=== PATIENT | male | born 1965 | race African-American/Black ===

== ENCOUNTER 2017-08-20 08:06 | Observation (INO) ==
[2017-08-20] MEDS ORDERED: Aspirin 81 MG TAB.CHEW PO ONE (08:16)
[2017-08-20] MEDS ORDERED: Nitroglycerin 1 INCH/GM PACKET TP ONE (08:16)
[2017-08-20] MEDS ORDERED: *HR* FentaNYL (PF) 100 MCG/2 ML VIAL IVP ONE (08:17)
[2017-08-20 08:26] LABS: Basophils # 0.1 K/mcL (0.0-0.2); Basophils % 0.4 %; Eosinophils # 0.1 K/mcL (0.0-0.6); Hemoglobin 13.8 g/dL (12.9-16.9); Immature Granulocytes % 0.9 % (0-4); Lymphocytes # 2.4 K/mcL (0.6-4.6); Lymphocytes % 18.1 %; Mean Corpuscular HGB Conc 33.7 g/dL (31.6-35.5); Mean Corpuscular Hemoglobin 31.2 pg (28.0-33.3); Mean Corpuscular Volume 92.6 fL (83.0-100.0); Mean Platelet Volume 9.7 fL (9.4-12.4); Monocytes # 0.7 K/mcL (0.0-1.3); Monocytes % 5.5 %; Neutrophils # 9.8 K/mcL (1.6-8.9); Platelet Count 298 K/mcL (140-400); Red Blood Count 4.43 M/mcL (4.19-5.50); Red Cell Distribution Width 13.8 % (11.5-14.5); Segmented Neutrophils % 74.1 %
[2017-08-20 08:31] LABS: INR 0.9; Prothrombin Time 9.1 Seconds (9.4-12.1)
[2017-08-20 08:34] LABS: Activated Partial Thrombo Time 25.6 Seconds (26.0-36.0)
[2017-08-20 08:57] LABS: Troponin I < 0.03 ng/mL (< 0.04)
[2017-08-20 09:17] LABS: BUN/Creatinine Ratio 18 (6-26); Blood Urea Nitrogen 17 mg/dL (6-20); Carbon Dioxide 27 mEq/L (23-29); Chloride 95 mEq/L (98-107); Glucose 139 mg/dL (70-105); Osmolality,Calculated 278 (280-300); Potassium 3.9 mEq/L (3.5-5.1); Sodium 132 mEq/L (136-145); eGFR For African Americans > 60 (> 60); eGFR For Non-African Americans > 60 (> 60)
[2017-08-20] MEDS: Nitroglycerin 25 MG/250 ML INFUS..BTL IVC SCH (11:08)
--- NOTE | 2017-08-20 11:48 | Internal Med History&Physical ---
Date of Encounter: 08/20/17 Time of Encounter: 11:42 Assessment and Plan (1) Chest pain Current visit: No Status: Acute Patient has heart score 4 Has relief of chest pain from nitro paste concerning for angina, however there was some reproducible pain with palpation of left chest wall concerning for musculoskelatal pain. Cardiac enzyme negative x1 Cycle cardiac enzymes Echocardiogram Consult cardiology Nitro, Zofran prn. NPO at midnight. Qualifiers: Chest pain type: unspecified Qualified Code(s): R07.9 - Chest pain, unspecified (2) Hypertension Current visit: No Status: Acute Resume home medications. Add IV hydralazine prn Currently BP normal as patient has nitro paste Qualifiers: Hypertension type: essential hypertension Qualified Code(s): I10 - Essential (primary) hypertension (3) Left shoulder pain Current visit: No Status: Acute Qualifiers: Chronicity: unspecified Qualified Code(s): M25.512 - Pain in left shoulder (4) Hyponatremia Current visit: Yes Status: Acute Likely from patient's recent increased dose of Zestoretic recently. Will recheck BMP, hold diuretic if needed though patient may be hypertensive after nitro paste stops. (5) Coronary artery disease Current visit: Yes Status: Acute Continue home Lipitor 40 mg daily Add aspirin Qualifiers: Coronary Disease-Associated Artery/Lesion type: [place] artery [place] vs. transplanted heart: [place] heart Associated angina: angina presence unspecified Qualified Code(s): I25.10 - Atherosclerotic heart disease of [place] coronary artery without angina pectoris (6) Hyperlipidemia Current visit: Yes Status: Acute Continue Lipitor Qualifiers: Hyperlipidemia type: unspecified Qualified Code(s): E78.5 - Hyperlipidemia , unspecified (7) DVT prophylaxis Current visit: Yes Status: Acute Heparin Sq 5,000 units BID Internal Medicine - H&P: HPI History of present illness: Mr. Mattie Suggs is a 52 year old male with history of coronary artery disease last follow-up was about 3 years ago, hypertension, hyperlipidemia presented for one day history of chest pain. He has also experienced SOB, elevated BP at home of 188/92, blurry vision, red spots, dizzyness, vomiting, diaphoresis. Pain travels down left arm. Patient states he is compliant with his medications. He denies any cough or sputum. In the ED patient had CTA that was negative for pulmonary embolism but did showed calcified coronary arteries. He had CT head which showed no acute abnormalities. In the ED he was given aspirin and fentanyl. He was placed on nitro paste and stated he had alleviation of symptoms. Past Med Surg Social Fam HX - Past Medical History Medical history: coronary artery disease, hyperlipidemia, hypertension Psychiatric history: no psych history - Past Surgical History Surgical History: other - Social History Smoking Status: Current every day smoker Smokeless Tobacco Status: No Alcohol use: occasionally Drug use: none Internal Medicine - H&P: Meds Gabapentin [Neurontin] 300 mg PO HS #14 capsule 08/17/17 [Rx] Atorvastatin [Lipitor] 40 mg PO HS 08/20/17 [History] Ibuprofen [Ibuprofen] 800 mg PO TID PRN 08/20/17 [History] Lisinopril/Hydrochlorothiazide [Zestoretic 20-25 mg Tablet] 1 tab PO DAILY 08/20 [History] Oxycodone HCl/Acetaminophen [Percocet 7.5-325 mg Tablet] 1 tab PO QID 08/20/17 [ History] 3 Allergy/AdvReac Type Severity Reaction Status Date / Time hydrocodone [From [place]] Allergy Rash Verified 08/20/17 10:51 naproxen [From Aleve] Allergy Rash Verified 08/20/17 10:51 All Systems PM: A 10-system review of systems was performed and is negative for pertinent findings except as documented above in the HPI. - Constitutional Constitutional: excessive sweating, no fever(s), no night sweats, no weakness - EENT Eyes: change in vision, no loss of peripheral vision, no loss of vision, no photophobia Nose, mouth and throat: no dysphagia, no nasal discharge, no neck pain, no sore throat - Cardiovascular Cardiovascular ROS IM: chest pain, diaphoresis, dyspnea, lightheadedness, no claudication, no edema, no irregular heart rhythm, no orthopnea, no paroxysmal nocturnal dyspnea - Respiratory Respiratory: dyspnea, no cough, no hemoptysis, no dyspnea on exertion, no wheezing, no snoring, no stridor, no pain on inspiration, no chest congestion - Gastrointestinal Gastrointestinal: no abdominal pain, no diarrhea, no hematemesis, no hematochezia, no melena, no nausea, no vomiting - Musculoskeletal Musculoskeletal ROS IM: no numbness, no tingling - Integumentary Integumentary IM: no rash, no unusual bruising - Neurological Neurological ROS: no confusion, no convulsions, no focal weakness, no numbness, no tingling, no tremor(s) - Hematologic/Lymphatic Hematologic/Lymphatic: no easy bruising - Constitutional Vitals: Temp Pulse Resp BP Pulse Ox 97.6 F 74 18 125/84 95 08/20/17 11:27 08/20/17 11:31 08/20/17 11:31 08/20/17 11:31 08/20/17 11:31 - Head Head exam: Present: atraumatic, normocephalic - Eye Eye exam: Present: PERRL, conjuntiva pink, sclera anicteric Pupils: Present: PERRL - Neck Neck exam general surgery: Present: supple, trachea midline. Absent: lymphadenopathy - Respiratory Respiratory exam: Present: CTAB. Absent: accessory muscle use, rales, rhonchi, wheezes - Cardiovascular Cardiovascular exam: Present: RRR, +S1, +S2. Absent: diastolic murmur, gallop, rubs, systolic murmur Additional comments: Positive TTP of left pectoral region. - GI/Abdominal GI/Abdominal exam: Present: normal bowel sounds, soft, no peritoneal signs. Absent: distended, tenderness - Extremities Exam Extremities exam: Present: warm, radial pulses palpable and symmetrical. Absent : calf tenderness, cyanotic, pedal edema - Neurological Exam Neurological exam: Present: CN II-XII intact, oriented X3, no focal deficits. Absent: pronater drift, facial droop, speech deficit - Skin Skin exam: Present: dry, intact Internal Med - H&P Results - Labs CBC & Chem 7: 08/20/17 08:19 08/20/17 08:19
[2017-08-20] MEDS ORDERED: Ondansetron 4 MG/2 ML VIAL IVP PRN (12:04)
[2017-08-20] MEDS ORDERED: Nitroglycerin 0.4 MG TAB.SUBL SL PRN (12:04)
--- NOTE | 2017-08-20 13:17 | Cardiology Consult Note ---
Date of Encounter: 08/20/17 Time of Encounter: 13:14 Assessment and Plan (1) Chest pain Current Visit: Yes Status: Acute Atypical chest pain with negative CE's and unremarkable non specific ST changes on EKG. NPO after midnight ASA daily IV heparin ACS protocol NST in am (if cannot verify recent stress test and LHC with ongoing chest pain will consider LHC) Qualifiers: Chest pain type: chest pain on breathing Qualified Code(s): R07.1 - Chest pain on breathing; R07.81 - Pleurodynia Discussion w patient/family: The assessment and plan as outlined above was discussed with the patient and/or family members who expressed understanding and agreement. All questions were answered. Thank you for involving us in the care of your patient. Please call with any questions. History of Present Illness Consult date: 08/20/17 Consult reason: chest pain Chief complaint: pain in my chest History of present illness: Mr. Mattie Suggs is a 52 year old male h/o HTN poorly controlled, smoker, presents with chest pain atypical in presentation. CP is RSCP radiating to the interscapular region not related to activity worse with coughing and deep breathing. EKG minimal non specific ST changes and negative CE's. Last 2-3 weeks he has been having this atypical chest pain currently ongoing since the am. It is slightly positional. LHC 3 years ago as per pt mild non obstructive CAD and recently 4 months ago NST also per pt unremarkable. These are not available to review. Past Med Surg Social Fam HX - Past Medical History Medical history: coronary artery disease, hyperlipidemia, hypertension Psychiatric history: no psych history - Past Surgical History Surgical History: other - Social History Smoking Status: Current every day smoker Smokeless Tobacco Status: No Alcohol use: occasionally Drug use: none - Family History Mother Adopted: [place]: madelyn rebollar Living Status: Age at : 65 Cause of : [place] Hx Family Cardiac Disorders: Yes ([place]) Hx Family Endocrine Disorder: Yes ([place]) Hx Family Musculoskeletal Disorders: Yes (arthritis) Medications and Allergies Gabapentin [Neurontin] 300 mg PO HS #14 capsule 08/17/17 [Rx] Atorvastatin [Lipitor] 40 mg PO HS 08/20/17 [History] Ibuprofen [Ibuprofen] 800 mg PO TID PRN 08/20/17 [History] Lisinopril/Hydrochlorothiazide [Zestoretic 20-25 mg Tablet] 1 tab PO DAILY 08/20 [History] Oxycodone HCl/Acetaminophen [Percocet 7.5-325 mg Tablet] 1 tab PO QID 08/20/17 [ History] 3 Allergy/AdvReac Type Severity Reaction Status Date / Time hydrocodone [From [place]] Allergy Rash Verified 08/20/17 10:51 naproxen [From Aleve] Allergy Rash Verified 08/20/17 10:51 All Systems Review: The remainder of the systems were reviewed and are negative Physical Examination Vital Signs, Last 4 Hours Temp Pulse Resp BP Pulse Ox 08/20/17 11:31 74 18 125/84 95 08/20/17 11:27 97.6 F 79 21 147/95 96 08/20/17 11:14 102 20 93/56 96 General: Conversant, No Apparent Distress HEENT: Atraumatic, Normocephaly, Mucus Membranes Moist Neck: No JVD, Normal carotid pulses Cardiac: Reg Rate and Rhythm, Normal S1 and S2, No Murmur Lungs: Normal Breath Sounds, No Wheeze, Rales, Rhonchi Neuro: Alert and responsive, No focal deficits noted Abdomen: Soft, Non-Tender Skin: No rashes noted on visualized skin Musculoskeletal: No Chest Wall Tenderness Extremities: No Clubbing, No Cyanosis, No Edema, Normal Pulses Results 08/20/17 08:19 08/20/17 08:19 Lab Results 08/20/17 12:16 Troponin I < 0.03 Consult Discharge Plan - Plan Referrals: Sayra Saxena CNP [Primary Care Provider] -
[2017-08-20] MEDS: *HR* OxyCODONE/APAP 7.5/325 TABLET PO SCH ×3 (13:58→21:00)
[2017-08-20] MEDS: *HR* Heparin 5,000 UNIT/ML VIAL SQ SCH (16:50)
--- NOTE | 2017-08-20 17:56 | Electrocardiograph Report ---
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
--- NOTE | 2017-08-20 18:44 | Emergency Department Note ---
Disposition Clinical Impression: Chest pain Qualifiers: Chest pain type: chest pain on breathing Qualified Code(s): R07.1 - Chest pain on breathing Disposition: Admitted As Inpatient General Adult HPI - General Chief complaint: ED Chest Pain Stated complaint: CP/High BP/DIzzy Time Seen by Provider: 08/20/17 08:12 Source: patient, family Limitations: no limitations Nursing Notes Reviewed: Yes Vital Signs Reviewed: Yes - History of Present Illness HPI Narrative: This is a 52-year-old male who presents with chest pain. Admits to left anterior chest wall pain for several days. The onset of his symptoms he cannot recall that the pain is been continuous. He has multiple risk factors. He admits to having known coronary artery disease. He has no fever or chills. He also admits to mild dizziness. General: No acute distress HEENT: Pupils equal and reactive to light, extraoccular muscle movement is normal, TMS are clear bilaterally. Heart: RRR, No murmor rub or gallop Lungs: lungs clear, no wheezing, rales or ronchi. ABD: SNT, no focal areas or tenderness, no guarding or rebound tenderness. Extremities: No cyanosis, clubbing or edema Neuro: CN 2-12 in tact, no focal deficit. strength 5/5. Medical decision-making CT scan of the head shows no acute findings. CT scan of the chest shows no acute findings. Cardiac biomarkers are negative. Given the patient's heart score as well as multiple risk factors that would proceed with admission. Aspirin was ministered. Nitroglycerin was administered. The patient did have improvement of pain and symptoms as well as improvement in blood pressure at time of admission. Pain Scale: 5 - Related Data Home Medications Medication Instructions Recorded Confirmed Atorvastatin [Lipitor] 40 mg PO HS 08/20/17 08/20/17 Ibuprofen [Ibuprofen] 800 mg PO TID PRN 08/20/17 08/20/17 Lisinopril/Hydrochlorothiazide 1 tab PO DAILY 08/20/17 08/20/17 [Zestoretic 20-25 mg Tablet] Oxycodone HCl/Acetaminophen 1 tab PO QID 08/20/17 08/20/17 [Percocet 7.5-325 mg Tablet] Previous Rx's Medication Instructions Recorded Gabapentin [Neurontin] 300 mg PO HS #14 capsule 08/17/17 Allergies Allergy/AdvReac Type Severity Reaction Status Date / Time hydrocodone [From [place]] Allergy Rash Verified 08/20/17 10:51 naproxen [From Aleve] Allergy Rash Verified 08/20/17 10:51 All systems ED: reviewed and negative except as stated. Past Medical History - Past Medical History Medical history: Reports: coronary artery disease, hyperlipidemia, hypertension Surgical history: Reports: other Psychiatric history: Reports: no psych history - Social History Smoking Status: Current every day smoker Smokeless Tobacco Status: No Alcohol use: Reports: occasionally Drug use: Reports: none Physical Exam - General Limitations: no limitations General appearance: alert, in no apparent distress Course Vital Signs Temperature 79.5 F L 08/20/17 08:08 Pulse Rate 93 08/20/17 08:08 Respiratory Rate 20 08/20/17 08:08 Blood Pressure 161/105 08/20/17 08:08 O2 Sat by Pulse Oximetry 94 08/20/17 08:08 Temperature 97.6 F 08/20/17 11:27 Pulse Rate 74 08/20/17 11:31 Respiratory Rate 18 08/20/17 11:31 Blood Pressure 125/84 08/20/17 11:31 O2 Sat by Pulse Oximetry 95 08/20/17 11:31 Oxygen Delivery Oxygen Delivery Room Air Medical Decision Making - Lab Data Result diagrams: 08/20/17 08:19 08/20/17 08:19 Lab Results 08/20/17 08/20/17 08/20/17 Range/Units 08:19 08:19 08:19 WBC 13.2 H (4.3-11.1) K/mcL RBC 4.43 (4.19-5.50) M/mcL Hgb 13.8 (12.9-16.9) g/dL Hct 41.0 (37.5-50.1) % MCV 92.6 (83.0-100.0) fL MCH 31.2 (28.0-33.3) pg MCHC 33.7 (31.6-35.5) g/dL RDW 13.8 (11.5-14.5) % Plt Count 298 (140-400) K/mcL MPV 9.7 (9.4-12.4) fL Immature Gran % 0.9 (0-4) % Seg Neutrophils % 74.1 % Lymphocytes % 18.1 % Monocytes % 5.5 % Eosinophils % 1.0 % Basophils % 0.4 % Neutrophils # 9.8 H (1.6-8.9) K/mcL Lymphocytes # 2.4 (0.6-4.6) K/mcL Monocytes # 0.7 (0.0-1.3) K/mcL Eosinophils # 0.1 (0.0-0.6) K/mcL Basophils # 0.1 (0.0-0.2) K/mcL PT 9.1 L (9.4-12.1) Seconds INR 0.9 APTT 25.6 L (26.0-36.0) Seconds Sodium (136-145) mEq/L Potassium (3.5-5.1) mEq/L Chloride (98-107) mEq/L Carbon Dioxide (23-29) mEq/L BUN (6-20) mg/dL Creatinine (0.70-1.30) mg/dL Est GFR ( Amer) (> 60) Est GFR (Non-Af Amer) (> 60) BUN/Creatinine Ratio (6-26) Glucose (70-105) mg/dL Calculated Osmolality (280-300) Calcium (8.6-10.3) mg/dL Troponin I (< 0.04) ng/mL B-Natriuretic Peptide 23 (Less than 100) pg/mL 08/20/17 Range/Units 08:19 WBC (4.3-11.1) K/mcL RBC (4.19-5.50) M/mcL Hgb (12.9-16.9) g/dL Hct (37.5-50.1) % MCV (83.0-100.0) fL MCH (28.0-33.3) pg MCHC (31.6-35.5) g/dL RDW (11.5-14.5) % Plt Count (140-400) K/mcL MPV (9.4-12.4) fL Immature Gran % (0-4) % Seg Neutrophils % % Lymphocytes % % Monocytes % % Eosinophils % % Basophils % % Neutrophils # (1.6-8.9) K/mcL Lymphocytes # (0.6-4.6) K/mcL Monocytes # (0.0-1.3) K/mcL Eosinophils # (0.0-0.6) K/mcL Basophils # (0.0-0.2) K/mcL PT (9.4-12.1) Seconds INR APTT (26.0-36.0) Seconds Sodium 132 L (136-145) mEq/L Potassium 3.9 (3.5-5.1) mEq/L Chloride 95 L (98-107) mEq/L Carbon Dioxide 27 (23-29) mEq/L BUN 17 (6-20) mg/dL Creatinine 0.94 (0.70-1.30) mg/dL Est GFR ( Amer) > 60 (> 60) Est GFR (Non-Af Amer) > 60 (> 60) BUN/Creatinine Ratio 18 (6-26) Glucose 139 H (70-105) mg/dL Calculated Osmolality 278 L (280-300) Calcium 10.0 (8.6-10.3) mg/dL Troponin I < 0.03 (< 0.04) ng/mL B-Natriuretic Peptide (Less than 100) pg/mL
[2017-08-20] MEDS: Gabapentin 300 MG CAPSULE PO SCH (21:00)
[2017-08-20 21:32] LABS: Amphetamine Screen,Urine Negative ng/mL (Cutoff=1000); Barbiturate Screen,Urine Negative ng/mL (Cutoff=200); Benzodiazepines Screen,Urine Negative ng/mL (Cutoff=200); Cannabinoid Screen,Urine Negative ng/mL (Cutoff = 50); Cocaine Screen,Urine Negative ng/mL (Cutoff= 300); Opiate Screen,Urine Negative ng/mL (Cutoff=300); Phencyclidine Screen,Urine Negative ng/mL (Cutoff=25)
[2017-08-21] MEDS: Ibuprofen 800 MG TABLET PO PRN ×2 (00:24→23:16)
[2017-08-21] MEDS: *HR* Heparin 5,000 UNIT/ML VIAL SQ SCH (05:20)
[2017-08-21 06:59] LABS: Basophils % 0.3 %; Eosinophils # 0.1 K/mcL (0.0-0.6); Hematocrit 42.3 % (37.5-50.1); Hemoglobin 14.2 g/dL (12.9-16.9); Immature Granulocytes % 1.2 % (0-4); Lymphocytes # 2.5 K/mcL (0.6-4.6); Lymphocytes % 23.7 %; Mean Corpuscular HGB Conc 33.6 g/dL (31.6-35.5); Mean Corpuscular Hemoglobin 31.2 pg (28.0-33.3); Mean Platelet Volume 10.1 fL (9.4-12.4); Monocytes # 0.6 K/mcL (0.0-1.3); Monocytes % 5.3 %; Neutrophils # 7.1 K/mcL (1.6-8.9); Platelet Count 296 K/mcL (140-400); Red Blood Count 4.55 M/mcL (4.19-5.50); Red Cell Distribution Width 13.9 % (11.5-14.5); Segmented Neutrophils % 68.5 %
--- NOTE | 2017-08-21 08:01 | Internal Med Progress Note ---
<Simone Cruz - Last Filed: 08/21/17 13:26> Date of Encounter: 08/21/17 Time of Encounter: 08:30 - Assessment and plan (1) Chest pain Current Visit: Yes Status: Acute Assessment and plan: Atypical chest pain, intermittent The patient has a HEART Score of 4, had acute chest pain on arrival Troponin negative x3, EKG demonstrates no obvious ischemic changes The patient says he has a history of "blocked vessels" without any MIs ASA was given on arrival, ACS dose heparin drip has been started Cardiology consulted, recommend nuclear stress test today Qualifiers: Chest pain type: chest pain on breathing Qualified Code(s): R07.1 - Chest pain on breathing; R07.81 - Pleurodynia (2) Alcohol abuse Current Visit: Yes Status: Acute Assessment and plan: Alcohol abuse, chronic Patient admits to binge drinking on weekends and 2-3 beers daily for years He is anxious on exam, and appears to have jittery nature Denies hallucinations, significant tremor. 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 If the patient is willing to quit, or wants to quit we will offer librium If the patient is unwilling, may provide beer TID to prevent withdrawals on short stay (3) Hypertension Current Visit: Yes Status: Chronic Assessment and plan: Essential hypertension, stable Patient has been mildly hypertensive on admission Continue home Lisinopril/HCTZ, consider addition of another medication at discharge Qualifiers: Hypertension type: essential hypertension Qualified Code(s): I10 - Essential (primary) hypertension (4) DVT prophylaxis Current Visit: Yes Status: Acute Assessment and plan: Patient is on Heparin drip for ACS - Subjective Interval history: The patient appears anxious upon entering the room. He says that he did not sleep at all last night because he was feeling anxious. He explains that he was having chest pain and right shoulder pain that radiated down to his right hand which is what brought him into the hospital. At that time he was also having significant nausea and vomiting which has since resolved. He denies any chest pains overnight, and has no acute complaints. He does admit to significant smoking history of one pack per day for about 20 years, as well as significant alcohol consumption, with binge drinking on the weekends and 2-3 beers each night after work during the week day. He denies ever having withdrawal symptoms or seizures. He denies other drug use. - Constitutional Vitals: Temp Pulse Resp BP Pulse Ox 97.9 F 67 16 142/83 98 08/21/17 07:28 08/21/17 07:28 08/21/17 07:28 08/21/17 07:28 08/21/17 07:28 Exam: Gen.: Vitals noted. No acute distress, however the patient is extremely anxious , and has increased startle response as well as a "jittery" appearance. AAOx3 HEENT: PERRL/EOMI, oropharynx clear, Normocephalic, atraumatic Neck: Supple. No adenopathy. Cardiac: RRR, no murmur, +S1/S2 Pulmonary: Fine rales with superimposed wheezes in L. lung base Abdomen: soft, nontender, BS noted, no guarding Back: Nontender throughout. MSK: ROM intact, no joint swelling noted Extremities: no BLE edema, nontender calf, no cyanosis or clubbing Neuro: A&Ox3, moves all extremities, no focal deficits, no obvious tremors Psych: Patient appears highly anxious Internal Medicine: Result - Labs CBC & Chem 7: 08/21/17 09:54 08/20/17 08:19 Labs: Short CBC 08/21/17 Range/Units 06:22 WBC 10.4 (4.3-11.1) K/mcL Hgb 14.2 (12.9-16.9) g/dL Hct 42.3 (37.5-50.1) % Plt Count 296 (140-400) K/mcL Neutrophils # 7.1 (1.6-8.9) K/mcL Cardiac Enzymes 08/20/17 08/20/17 Range/Units 12:16 17:59 Troponin I < 0.03 < 0.03 (< 0.04) ng/mL - ABG Interpretation ABG results: PT/INR, D-dimer PT 9.1 Seconds (9.4-12.1) L 08/20/17 08:19 Consult Discharge Plan - Plan Referrals: Sayra Saxena, CONDITIONING MACHINE OPERATOR [Primary Care Provider] - <Javon Fulton - Last Filed: 08/21/17 14:47> Date of Encounter: 08/21/17 - Assessment and plan (1) Chest pain Current Visit: Yes Status: Acute Qualifiers: Chest pain type: chest pain on breathing Qualified Code(s): R07.1 - Chest pain on breathing; R07.81 - Pleurodynia (2) Bradycardia Current Visit: Yes Status: Acute - Constitutional Vitals: Temp Pulse Resp BP Pulse Ox 97.9 F 67 16 142/83 98 08/21/17 07:28 08/21/17 07:28 08/21/17 07:28 08/21/17 07:28 08/21/17 07:28 Internal Medicine: Result - Labs CBC & Chem 7: 08/21/17 09:54 08/20/17 08:19 Labs: Short CBC 08/21/17 08/21/17 Range/Units 06:22 09:54 WBC 10.4 9.5 (4.3-11.1) K/mcL Hgb 14.2 14.4 (12.9-16.9) g/dL Hct 42.3 41.5 (37.5-50.1) % Plt Count 296 278 (140-400) K/mcL Neutrophils # 7.1 (1.6-8.9) K/mcL Cardiac Enzymes 08/20/17 Range/Units 17:59 Troponin I < 0.03 (< 0.04) ng/mL - ABG Interpretation ABG results: PT/INR, D-dimer PT 9.4 Seconds (9.4-12.1) 08/21/17 09:54 - Impressions Impressions Echocardiogram 08/20/17 12:04 Impressions: LVEF 60%. Normal LV chamber size and function. Mild concentric left ventricular hypertrophy. Mild left ventricular diastolic dysfunction. Normal right ventricular structure and function. No evidence of pulmonary hypertension. No significant valvular dysfunction. Left Ventricular Wall Motion: Rest Echo Findings All wall segments showed normal motion. Findings: Study Quality * Technically sub-optimal due to poor echocardiographic windows. ECG Findings * Normal sinus rhythm. Left Ventricle * LVEF 60%. * Normal LV chamber size and function. * Mild concentric left ventricular hypertrophy. * Mild left ventricular diastolic dysfunction. Right Ventricle * Normal right ventricular structure and function. Left Atrium * Mildly dilated left atrium. Right Atrium * Normal right atrial size. Interatrial Septum * Interatrial septum not well evaluated. Aortic Valve * Trileaflet aortic valve with normal function. * No aortic regurgitation. * No aortic stenosis. Mitral Valve * Normal mitral valve structure and function. * No mitral regurgitation. * No mitral stenosis. Tricuspid Valve * Normal tricuspid valve structure and function. * Trace tricuspid regurgitation. * No evidence of pulmonary hypertension. Pulmonic Valve * Pulmonic valve not well visualized. Aorta * Normally sized aortic root. Pericardium * The pericardium appears normal. IVC * Grossly normal IVC dimensions and inspiratory collapse. Pulmonary Artery * Pulmonary artery not well visualized. - Attending Attestation I examined this patient and my medical decision-making was reviewed with the Resident Physician. I agree with the documented findings, disposition and treatment plan as described except to the extent set forth below. Seen and examined at bedside, not in any pain Cardio eval from 08/20 noted, no orders for their recommendations, placed this morning. Trops negative, ECHO negative-LVDD no WMA. Stress test is pending Hx of alcohol abuse, possible atelectasis with bibasal rhonchi, encourage incentive spirometry Follow stress test report Monitor for withdrawal Rest is as documented by the resident physician.
[2017-08-21] MEDS ORDERED: *HR* Heparin 5,000 UNIT/ML VIAL IVP ONE (08:36)
[2017-08-21] MEDS ORDERED: *HR* Heparin 5,000 UNIT/ML VIAL IVP PRN ×2 (08:36)
[2017-08-21] MEDS ORDERED: Heparin 25,000 UNIT/500 ML D5W 25,000 UNIT/500 ML BAG IVC SCH (08:45)
[2017-08-21] MEDS: *HR* OxyCODONE/APAP 7.5/325 TABLET PO SCH ×4 (09:20→20:46)
[2017-08-21 10:04] LABS: Hematocrit 41.5 % (37.5-50.1); Hemoglobin 14.4 g/dL (12.9-16.9); Mean Corpuscular HGB Conc 34.7 g/dL (31.6-35.5); Mean Corpuscular Hemoglobin 31.9 pg (28.0-33.3); Mean Platelet Volume 9.7 fL (9.4-12.4); Platelet Count 278 K/mcL (140-400); Red Blood Count 4.51 M/mcL (4.19-5.50); Red Cell Distribution Width 13.9 % (11.5-14.5)
[2017-08-21 10:12] LABS: INR 0.9; Prothrombin Time 9.4 Seconds (9.4-12.1)
[2017-08-21 10:14] LABS: Activated Partial Thrombo Time 29.1 Seconds (26.0-36.0)
[2017-08-21] MEDS ORDERED: Regadenoson 0.4 MG/5 ML SYRINGE IVP ONE (10:55)
[2017-08-21] MEDS ORDERED: *HR* LORazepam 2 MG/ML VIAL IVP PRN ×3 (13:20)
--- NOTE | 2017-08-21 13:30 | Cardiology Progress Note ---
Date of Encounter: 08/21/17 Time of Encounter: 13:28 Assessment and Plan (1) Chest pain Current Visit: Yes Status: Acute Per cardiology: -Atypical chest pain with negative CE's and unremarkable non specific ST changes on EKG. -Troponins negative x3. -Denies current chest pain. Reports left arm pain constant and increases with movement. -2 day stress pending, will finish tomorrow. -TTE with lVEF preserved, no segmental wall motion abnormalities noted. -Further recommendations pending stress. Qualifiers: Chest pain type: chest pain on breathing Qualified Code(s): R07.1 - Chest pain on breathing; R07.81 - Pleurodynia (2) Bradycardia Current Visit: Yes Status: Acute Per cardiology: -Nocturnal bradycardia noted. -Reviewed with Dr.John Ochoa, suspect sleep apnea related. -Denies previous history of sleep apnea, however reports snoring. -Not on AV carlos blockers. -Recommend outpatient sleep study. Discussion w patient/family: The assessment and plan as outlined above was discussed with the patient who expressed understanding and agreement. All questions were answered. Thank you for involving us in the care of your patient. Please call with any questions. Discussed and reviewed with . Subjective Principal diagnosis: chest pain Interval history: Patient denies current chest pain. However, states has had constant left arm pain that increases with movement of left arm. Objective Vital Signs Temperature 79.5 F L 08/20/17 08:08 Pulse Rate 93 08/20/17 08:08 Respiratory Rate 20 08/20/17 08:08 Blood Pressure 161/105 08/20/17 08:08 O2 Sat by Pulse Oximetry 94 08/20/17 08:08 Temperature 97.9 F 08/21/17 07:28 Pulse Rate 67 08/21/17 07:28 Respiratory Rate 16 08/21/17 07:28 Blood Pressure 142/83 08/21/17 07:28 O2 Sat by Pulse Oximetry 98 08/21/17 07:28 Oxygen Delivery Oxygen Delivery Nasal Cannula General: Conversant, No Apparent Distress HEENT: Atraumatic, Normocephaly, Mucus Membranes Moist Neck: No JVD, Normal carotid pulses Cardiac: Reg Rate and Rhythm, Normal S1 and S2, No Murmur Lungs: Normal Breath Sounds, No Wheeze, Rales, Rhonchi Neuro: Alert and responsive, No focal deficits noted Abdomen: Soft, Non-Tender Skin: No rashes noted on visualized skin Musculoskeletal: No Chest Wall Tenderness Extremities: No Clubbing, No Cyanosis, No Edema, Normal Pulses Results 08/21/17 09:54 08/20/17 08:19 Lab Results Impressions Echocardiogram 08/20/17 12:04 Impressions: LVEF 60%. Normal LV chamber size and function. Mild concentric left ventricular hypertrophy. Mild left ventricular diastolic dysfunction. Normal right ventricular structure and function. No evidence of pulmonary hypertension. No significant valvular dysfunction. Left Ventricular Wall Motion: Rest Echo Findings All wall segments showed normal motion. Findings: Study Quality * Technically sub-optimal due to poor echocardiographic windows. ECG Findings * Normal sinus rhythm. Left Ventricle * LVEF 60%. * Normal LV chamber size and function. * Mild concentric left ventricular hypertrophy. * Mild left ventricular diastolic dysfunction. Right Ventricle * Normal right ventricular structure and function. Left Atrium * Mildly dilated left atrium. Right Atrium * Normal right atrial size. Interatrial Septum * Interatrial septum not well evaluated. Aortic Valve * Trileaflet aortic valve with normal function. * No aortic regurgitation. * No aortic stenosis. Mitral Valve * Normal mitral valve structure and function. * No mitral regurgitation. * No mitral stenosis. Tricuspid Valve * Normal tricuspid valve structure and function. * Trace tricuspid regurgitation. * No evidence of pulmonary hypertension. Pulmonic Valve * Pulmonic valve not well visualized. Aorta * Normally sized aortic root. Pericardium * The pericardium appears normal. IVC * Grossly normal IVC dimensions and inspiratory collapse. Pulmonary Artery * Pulmonary artery not well visualized. Active Medications Aspirin (Aspirin) 81 mg PO DAILY [facility] Stop: 02/20/18 09:01 Atorvastatin Calcium (Lipitor) 40 mg PO HS [facility] Stop: 02/19/18 21:01 Last Admin: 08/20/17 21:00 Dose: 40 mg Folic Acid (Folic Acid) 1 mg PO DAILY [facility] Stop: 02/20/18 13:31 Gabapentin (Neurontin) 300 mg PO HS [facility] Stop: 02/19/18 21:01 Last Admin: 08/20/17 21:00 Dose: 300 mg Heparin Sodium (Porcine) (Heparin) 5,000 unit SQ Q12HCO [facility] Stop: 02/19/18 18:01 Last Admin: 08/21/17 05:20 Dose: 5,000 unit Heparin Sodium (Porcine) (Heparin) 4,000 unit IVP Q6HR PRN PRN Reason: SEE COMMENTS Stop: 02/20/18 08:37 Heparin Sodium (Porcine) (Heparin) 2,000 unit IVP Q6H PRN PRN Reason: SEE COMMENTS Stop: 02/20/18 08:37 Hydralazine HCl (Hydralazine) 10 mg IVP Q6HR PRN PRN Reason: SEE COMMENTS Stop: 02/19/18 12:09 Nitroglycerin (Nitroglycerin Premix 25 Mg/250 Ml) 25 mg in 250 mls @ 3 mls/hr IVC .Q24H [facility]; 5 MCG/MIN PRN Reason: Protocol Stop: 02/19/18 10:46 Last Titration: 08/20/17 13:07 Dose: 0 mcg/min, 0 mls/hr Heparin Sodium/Dextrose (Heparin 25,000 Unit/500 Ml D5w) 25,000 unit in 500 mls @ 20.152 mls/hr IVC .Q24H [facility]; 8.3 UNIT/KG/HR PRN Reason: Protocol Stop: 02/20/18 08:46 Last Admin: 08/21/17 10:16 Dose: 8.3 unit/kg/hr, 20.152 mls/hr Ibuprofen (Motrin) 800 mg PO Q8HR PRN; Protocol PRN Reason: Pain Stop: 02/19/18 23:41 Last Admin: 08/21/17 00:24 Dose: 800 mg Lorazepam (Ativan) 1 mg IVP Q1H PRN PRN Reason: Alcohol Withdrawal Stop: 02/20/18 13:21 Lorazepam (Ativan) 2 mg IVP Q4HR PRN PRN Reason: CIWA Score of 10-21 Stop: 02/20/18 13:21 Lorazepam (Ativan) 4 mg IVP Q4HR PRN PRN Reason: CIWA Score of 22-45 Stop: 02/20/18 13:21 Nicotine (Nicoderm) 14 mg TD DAILY [facility] PRN Reason: Protocol Stop: 02/20/18 09:01 Nitroglycerin (Nitroglycerin) 0.4 mg SL Q5MIN PRN PRN Reason: Chest Pain Stop: 02/19/18 12:05 Ondansetron HCl (Zofran) 4 mg IVP Q6HR PRN; Protocol PRN Reason: Nausea Stop: 02/19/18 12:05 Oxycodone/Acetaminophen (Percocet 7.5/325) 1 each PO QID [facility] Stop: 02/19/18 13:01 Last Admin: 08/21/17 09:20 Dose: 1 each Thiamine HCl (Vitamin B-1) 100 mg PO DAILY [facility] Stop: 02/20/18 13:31 Vitamin B Complex/Vit C/Vit E (Stresstab) 1 each PO DAILY [facility] Stop: 02/20/18 13:31 Laboratory Tests 08/20/17 08/20/17 08/20/17 08:19 12:16 17:59 Hgb Creatinine 0.94 Troponin I < 0.03 < 0.03 < 0.03 08/21/17 09:54 Hgb 14.4 Creatinine Troponin I - Imaging and Cardiology Chest Xray: report reviewed Stress Test: pending Echo: report reviewed - EKG Interpretation EKG results cardiology: other (Telemetry reviewed with average HR previous 12 hours noted to be 74. SR. Nocturnal bradycardia noted.) Consult Discharge Plan - Plan Referrals: Sayra Saxena NIGHT MANAGER [Primary Care Provider] -
[2017-08-21] MEDS: Nicotine 14 MG PATCH.TD24 TD SCH (14:34)
[2017-08-21] MEDS: Nitroglycerin 25 MG/250 ML INFUS..BTL IVC SCH (14:35)
[2017-08-21] MEDS: Folic Acid 1 MG TABLET PO SCH (14:36)
[2017-08-21] MEDS: Aspirin 81 MG TAB.CHEW PO SCH (14:36)
[2017-08-21] MEDS: Thiamine (B-1) 100 MG TABLET PO SCH (14:36)
[2017-08-21] MEDS: Vitamin B Complex/Vit C/Vit E 1 EACH TABLET PO SCH (17:45)
[2017-08-21] MEDS ORDERED: Lisinopril-HCTZ 20-12.5mg TABLET PO SCH (18:45)
[2017-08-21] MEDS: Gabapentin 300 MG CAPSULE PO SCH (20:46)
[2017-08-22 04:22] LABS: Basophils # 0.1 K/mcL (0.0-0.2); Basophils % 0.5 %; Eosinophils # 0.1 K/mcL (0.0-0.6); Eosinophils % 1.4 %; Hematocrit 40.9 % (37.5-50.1); Hemoglobin 13.4 g/dL (12.9-16.9); Immature Granulocytes % 0.8 % (0-4); Lymphocytes % 29.6 %; Mean Corpuscular HGB Conc 32.8 g/dL (31.6-35.5); Mean Corpuscular Hemoglobin 30.9 pg (28.0-33.3); Mean Corpuscular Volume 94.2 fL (83.0-100.0); Mean Platelet Volume 9.9 fL (9.4-12.4); Monocytes # 0.7 K/mcL (0.0-1.3); Monocytes % 7.2 %; Neutrophils # 6.1 K/mcL (1.6-8.9); Platelet Count 294 K/mcL (140-400); Red Blood Count 4.34 M/mcL (4.19-5.50); Red Cell Distribution Width 13.9 % (11.5-14.5); Segmented Neutrophils % 60.5 %
[2017-08-22 04:43] LABS: Alanine Aminotransferase 63 Units/L (7-52); Albumin/Globulin Ratio 1.8 (1.1-2.2); Alkaline Phosphatase 49 Units/L (34-104); Aspartate Amino Transferase 40 Units/L (13-39); BUN/Creatinine Ratio 24 (6-26); Bilirubin,Direct 0.1 mg/dL (0.0-0.2); Bilirubin,Indirect 0.4 mg/dL (0.0-1.2); Bilirubin,Total 0.5 mg/dL (0.3-1.0); Blood Urea Nitrogen 21 mg/dL (6-20); Calcium 10.3 mg/dL (8.6-10.3); Carbon Dioxide 29 mEq/L (23-29); Chloride 102 mEq/L (98-107); Globulin 2.2 g/dL (2.4-3.5); Glucose 119 mg/dL (70-105); Osmolality,Calculated 286 (280-300); Potassium 4.1 mEq/L (3.5-5.1); Sodium 136 mEq/L (136-145); Total Protein 6.2 g/dL (6.4-8.9); eGFR For African Americans > 60 (> 60); eGFR For Non-African Americans > 60 (> 60)
[2017-08-22] MEDS: Folic Acid 1 MG TABLET PO SCH (08:59)
[2017-08-22] MEDS: Aspirin 81 MG TAB.CHEW PO SCH (08:59)
[2017-08-22] MEDS: *HR* OxyCODONE/APAP 7.5/325 TABLET PO SCH (08:59)
[2017-08-22] MEDS: Vitamin B Complex/Vit C/Vit E 1 EACH TABLET PO SCH (08:59)
[2017-08-22] MEDS: Thiamine (B-1) 100 MG TABLET PO SCH (08:59)
[2017-08-22] MEDS: Nicotine 14 MG PATCH.TD24 TD SCH (09:00)
--- NOTE | 2017-08-22 09:34 | Cardiology Progress Note ---
Date of Encounter: 08/22/17 Time of Encounter: 08:30 Assessment and Plan (1) Chest pain Current Visit: Yes Status: Acute Per cardiology: -Atypical chest pain with negative CE's and unremarkable non specific ST changes on EKG. -Troponins negative x3. -Denies current chest pain. Reports left arm pain constant and increases with movement. -2 day stress pending. -TTE with lVEF preserved, no segmental wall motion abnormalities noted. -Further recommendations pending stress. If no significant findings on stress, anticipate cardiology sign off. Will set up outpatient follow up. Qualifiers: Chest pain type: chest pain on breathing Qualified Code(s): R07.1 - Chest pain on breathing; R07.81 - Pleurodynia (2) Bradycardia Current Visit: Yes Status: Acute Per cardiology: -Nocturnal bradycardia noted. -Reviewed with Dr.John Ochoa, suspect sleep apnea related. -Denies previous history of sleep apnea, however reports snoring. -Not on AV carlos blockers. -Recommend outpatient sleep study. Discussed at length with patient regarding need for outpatient sleep study. Discussion w patient/family: The assessment and plan as outlined above was discussed with the patient who expressed understanding and agreement. All questions were answered. Thank you for involving us in the care of your patient. Please call with any questions. Discussed and reviewed with . Subjective Principal diagnosis: chest pain Interval history: Patient denies current chest pain. However, states has had constant left arm pain that increases with movement of left arm. Patient reports pain has been constant. Objective Vital Signs, Last 4 Hours Temp Pulse Resp BP Pulse Ox 08/22/17 07:16 98.2 F 86 16 135/80 92 General: Conversant, No Apparent Distress HEENT: Atraumatic, Normocephaly, Mucus Membranes Moist Neck: No JVD, Normal carotid pulses Cardiac: Reg Rate and Rhythm, Normal S1 and S2, No Murmur Lungs: Normal Breath Sounds, No Wheeze, Rales, Rhonchi Neuro: Alert and responsive, No focal deficits noted Abdomen: Soft, Non-Tender Skin: No rashes noted on visualized skin Musculoskeletal: No Chest Wall Tenderness Extremities: No Clubbing, No Cyanosis, No Edema, Normal Pulses Results 08/22/17 03:57 08/22/17 03:57 Lab Results Active Medications Aspirin (Aspirin) 81 mg PO DAILY [facility] Stop: 02/20/18 09:01 Last Admin: 08/22/17 08:59 Dose: 81 mg Atorvastatin Calcium (Lipitor) 40 mg PO HS [facility] Stop: 02/19/18 21:01 Last Admin: 08/21/17 20:46 Dose: 40 mg Folic Acid (Folic Acid) 1 mg PO DAILY [facility] Stop: 02/20/18 13:31 Last Admin: 08/22/17 08:59 Dose: 1 mg Gabapentin (Neurontin) 300 mg PO HS [facility] Stop: 02/19/18 21:01 Last Admin: 08/21/17 20:46 Dose: 300 mg Lisinopril/HCTZ (Prinzide 10-12.5) 2 each PO DAILY [facility] Stop: 02/21/18 09:01 Last Admin: 08/22/17 08:59 Dose: 2 each Heparin Sodium (Porcine) (Heparin) 5,000 unit SQ Q12HCO [facility] Stop: 02/19/18 18:01 Last Admin: 08/21/17 05:20 Dose: 5,000 unit Hydralazine HCl (Hydralazine) 10 mg IVP Q6HR PRN PRN Reason: SEE COMMENTS Stop: 02/19/18 12:09 Ibuprofen (Motrin) 800 mg PO Q8HR PRN; Protocol PRN Reason: Pain Stop: 02/19/18 23:41 Last Admin: 08/21/17 23:16 Dose: 800 mg Lorazepam (Ativan) 1 mg IVP Q1H PRN PRN Reason: Alcohol Withdrawal Stop: 02/20/18 13:21 Lorazepam (Ativan) 2 mg IVP Q4HR PRN PRN Reason: CIWA Score of 10-21 Stop: 02/20/18 13:21 Lorazepam (Ativan) 4 mg IVP Q4HR PRN PRN Reason: CIWA Score of 22-45 Stop: 02/20/18 13:21 Nicotine (Nicoderm) 14 mg TD DAILY [facility] PRN Reason: Protocol Stop: 02/20/18 09:01 Last Admin: 08/22/17 09:00 Dose: Not Given Nitroglycerin (Nitroglycerin) 0.4 mg SL Q5MIN PRN PRN Reason: Chest Pain Stop: 02/19/18 12:05 Ondansetron HCl (Zofran) 4 mg IVP Q6HR PRN; Protocol PRN Reason: Nausea Stop: 02/19/18 12:05 Oxycodone/Acetaminophen (Percocet 7.5/325) 1 each PO QID [facility] Stop: 02/19/18 13:01 Last Admin: 08/22/17 08:59 Dose: 1 each Thiamine HCl (Vitamin B-1) 100 mg PO DAILY [facility] Stop: 02/20/18 13:31 Last Admin: 08/22/17 08:59 Dose: 100 mg Vitamin B Complex/Vit C/Vit E (Stresstab) 1 each PO DAILY [facility] Stop: 02/20/18 13:31 Last Admin: 08/22/17 08:59 Dose: 1 each Laboratory Tests 08/22/17 08/22/17 03:57 03:57 Hgb 13.4 Creatinine 0.88 - Imaging and Cardiology Chest Xray: report reviewed Stress Test: pending Echo: report reviewed - EKG Interpretation EKG results cardiology: other (Telemetry reviewed with average HR previous 12 hours noted to be 78, SR. PVCs and PACs noted. Nocturnal bradycardia noted.) Consult Discharge Plan - Plan Referrals: Sayra Saxena, FISH SMOKER [Primary Care Provider] -
[2017-08-22 10:29] VITALS: BP 124/83
--- NOTE | 2017-08-22 10:35 | Discharge Summary ---
<Simone Cruz - Last Filed: 08/22/17 13:12> - NOTES TO OUTPATIENT PROVIDER Notes to Outpatient Provider: Mr. Phelps was admitted for repeated atypical chest pain and left arm pain which was relieved by rest. He did not experience this pain over the duration of his stay. Nuclear stress test is negative for ischemia, and he will require outpatient follow-up. The patient does admit to significant alcohol consumption, and his LFTs demonstrate transaminitis which will require follow-up/monitoring in the outpatient setting. The patient has been advised to avoid tylenol and decrease alcohol consumption, however he does not believe that his alcohol consumption is a problem, and indicates that he is unlikely to make this lifestyle change. Orders not resulted at time of discharge: Pending orders 08/21/17 08:16 NM judith perf SPECT multi [NM] Routine Date of Encounter: 08/22/17 Time of Encounter: 09:15 - Discharge Diagnosis (1) Chest pain Priority: Primary Status: Acute Qualifiers: Chest pain type: chest pain on breathing Qualified Code(s): R07.1 - Chest pain on breathing; R07.81 - Pleurodynia (2) Alcohol abuse Priority: Secondary Status: Acute (3) Hypertension Priority: Secondary Status: Chronic Qualifiers: Hypertension type: essential hypertension Qualified Code(s): I10 - Essential (primary) hypertension (4) Left shoulder pain Priority: Secondary Status: Acute Qualifiers: Chronicity: unspecified Qualified Code(s): M25.512 - Pain in left shoulder Hospital course: Mr. Mattie Suggs is a 52 year old male with history of coronary artery disease , hypertension, hyperlipidemia who presented to the ED with chest pain of several days duration. He says that he was having SOB, elevated BP at home of 188/92, blurry vision, red spots, dizzyness, vomiting, diaphoresis and pain that travels down left arm. Significantly, this is the second visit to the ED in several days with similar symptoms. In the ED he had stat EKG which was negative for ischemic changes, and troponins were trended x3 and remained negative. Cardiology was consulted and recommended echocardiogram and nuclear stress test, and he was started on ASA and a heparin drip. TTE shows LVEF 60% with mild concentric LVH and mild LV diastolic dysfunction. Nuclear stress test showed gated EV of 70% with no ischemic changes. Throughout his stay, the patient became increasingly anxious. At this time he was questioned about social history and it was revealed that the patient drinks a significant amount of alcohol. Due to concern for withdrawal, the patient was started on CIWA protocol, however never demonstrated significant symptoms of DT. Additionally, the patient developed basilar crackles which resolved on their own without any clinical indication of infection. His left shoulder and arm continued to ache throughout admission, however it was reproducible with palpation. The patient improved with administration of NSAIDs. He will be discharged to outpatient management by PCP. Discharge discussed with: patient, family Time spent discussing smoking cessation with patient: 3 to 10 minutes - Time Spent with Patient Total time spent providing and/or coordinating discharge services: - Discharge Medications Prescriptions: Folic Acid 1 mg PO DAILY #30 tablet Thiamine (B-1) [Vitamin B-1] 100 mg PO DAILY #30 tablet Home Medications: Gabapentin [Neurontin] 300 mg PO HS #14 capsule 08/17/17 [Rx] Atorvastatin [Lipitor] 40 mg PO HS 08/20/17 [History] Ibuprofen 800 mg PO TID PRN 08/20/17 [History] Lisinopril/Hydrochlorothiazide [Zestoretic 20-25 mg Tablet] 1 tab PO DAILY 08/20 [History] Oxycodone HCl/Acetaminophen [Percocet 7.5-325 mg Tablet] 1 tab PO QID 08/20/17 [ History] Aspirin 81 mg PO DAILY tab.chew 08/22/17 [Rx] Folic Acid 1 mg PO DAILY #30 tablet 08/22/17 [Rx] Thiamine (B-1) [Vitamin B-1] 100 mg PO DAILY #30 tablet 08/22/17 [Rx] Allergies/Adverse Reactions: 3 Allergy/AdvReac Type Severity Reaction Status Date / Time hydrocodone [From [place]] Allergy Rash Verified 08/20/17 10:51 naproxen [From [facility]] Allergy Rash Verified 08/20/17 10:51 Date of admission: 08/20/17 10:59 Primary care physician: LORENA Daniel Consults: 08/20/17 12:04 Consult to Cardiology [CONS] Routine Comment: Consulting Provider: Cardiology [facility] Reason for Consult: Chest pain Call Completed: Yes 08/21/17 13:21 Consult to Pressurization Mechanic [CONS] Routine Reason for SW Consult: Alcohol dependence Discharging clinician: Simone Cruz Anticipated date of discharge: 08/22/17 - Constitutional Vitals: Temp Pulse Resp BP Pulse Ox 97.7 F 91 14 124/83 94 08/22/17 10:27 08/22/17 10:27 08/22/17 10:27 08/22/17 10:27 08/22/17 10:27 Exam: Gen.: Vitals noted. No acute distress, however the patient is extremely anxious , and has increased startle response as well as a "jittery" appearance. AAOx3 HEENT: Normocephalic, atraumatic Neck: Supple. No adenopathy. Cardiac: RRR, no murmur, +S1/S2 Pulmonary: Fine rales with superimposed wheezes in L. lung base which are largely resolved from previous exam Abdomen: soft, nontender, BS noted, no guarding Back: Nontender throughout. MSK: ROM intact, no joint swelling noted Extremities: no BLE edema, nontender calf, no cyanosis or clubbing Neuro: A&Ox3, moves all extremities, no focal deficits, no obvious tremors Psych: Patient appears highly anxious - Patient Status Disposition: Home, Self-Care Condition: Good Functional capacity at discharge: independent ambulation Overall status at discharge: patient is back to baseline - Discharge Instructions Instructions: Chest Pain (DC), Chronic Hypertension (DC) Follow Up With: Sayra Saxena CNP [Primary Care Provider] - 09/03/17 3:20 pm Forms: ED Satisfaction Letter Additional Instructions: -Follow-up with cardiology as directed, typically 4-6weeks -Follow-up with primary care within 3-5 days -Avoid use of acetaminophen, decrease alcohol consumption to 2 or fewer beverages per day, and no more than 10 per week. -Return to the ED for worsened chest pain, changes in level of consciousness, or severe shortness of breath. -Take daily vitamins prescribed at the time of discharge -Prescriptions were sent electronically to patient's listed pharmacy. - Diet and Activity Activity: increase activity as tolerated Diet: low fat, low cholesterol, low salt diet <Javon Fulton - Last Filed: 08/22/17 14:41> Orders not resulted at time of discharge: Pending orders 08/21/17 08:16 NM judith perf SPECT multi [NM] Routine Date of Encounter: 08/22/17 - Discharge Diagnosis (1) Chest pain Status: Acute Qualifiers: Chest pain type: chest pain on breathing Qualified Code(s): R07.1 - Chest pain on breathing; R07.81 - Pleurodynia (2) Bradycardia Status: Acute Hospital course: Mr. Mattie Suggs is a 52 year old male - Time Spent with Patient Total time spent providing and/or coordinating discharge services: Date of admission: 08/20/17 10:59 Primary care physician: LORENA Daniel Consults: 08/20/17 12:04 Consult to Cardiology [CONS] Routine Comment: Consulting Provider: Cardiology [facility] Reason for Consult: Chest pain Call Completed: Yes 08/21/17 13:21 Consult to Pressurization Mechanic [CONS] Routine Reason for SW Consult: Alcohol dependence - Constitutional Vitals: Temp Pulse Resp BP Pulse Ox 97.7 F 91 14 124/83 94 08/22/17 10:27 08/22/17 10:27 08/22/17 10:27 08/22/17 10:27 08/22/17 10:27 - Attending Attestation I examined this patient and my medical decision-making was reviewed with the Resident Physician. I agree with the documented findings, disposition and treatment plan as described except to the extent set forth below Seen and examined at bedside ACS ruled out Does not wish to quit alcoholism Safe to discharge home
== END 2017-08-22 13:17 | disposition home or self-care (01) ==
LOC: EMEROO 08:06 → 2SOUTHHOLD 08:06 → 3BNU 08-21 15:57
PROVIDERS: ADMIT Family Medicine; ATTEND Student in an Organized Health Care Education/Training Program